=== PATIENT | female | born 1985 | race Two or more races ===

== ENCOUNTER 2023-07-06 08:52 | Emergency (ER) | payer MEDICAID ==
[~2023-07-06] VITALS: Ht 165.1 cm; Wt 74.7 kg
[2023-07-06 09:58] LABS: Urine Bacteria None Seen /hpf (None Seen)
[2023-07-06 10:06] LABS: Urine Blood 2+ /uL (Negative); Urine Clarity Clear (Clear); Urine Color Light-Yellow (Yellow); Urine Mucus FEW (None Seen); Urine Protein, UAD Negative (Negative); Urine Specific Gravity 1.015 (1.001-1.035); Urine Urobilinogen Normal (Negative); Urine WBC 3 /hpf (0 - 5); Urine pH 7.5 (5.0-9.0)
[2023-07-06] MEDS ORDERED: CEPH250C PO (12:12)
[2023-07-06 14:16] VITALS: BP 145/80; PULSE 79; RESP 18; TEMP 98; O2SAT 100
== END 2023-07-06 14:23 | disposition home or self-care (01) ==
LOC: ER 08:52
DX: O23.41 Unspecified infection of urinary tract in pregnancy, first trimester (principal); R10.2 Pelvic and perineal pain; Z3A.12 12 weeks gestation of pregnancy; Z79.899 Other long term (current) drug therapy
CPT/HCPCS: 36415; 76801; 81001; 81025; 84702